=== PATIENT | male | born 1965 | race American Indian/Alaskan Native ===

== ENCOUNTER 2017-10-14 22:49 | Emergency (ER) | payer MEDICAID ==
[2017-10-14 23:37] VITALS: BP 133/76; PULSE 86; RESP 18; TEMP 97.9; O2SAT 99
--- NOTE | 2017-10-14 23:54 | ED PDOC ---
Arrival/HPI - General Historian: Patient - History of Present Illness Time/Duration: Prior to Arrival, 1-3 hours Symptom Onset: Gradual Symptom Course: Unchanged Quality: Aching Severity Level: 5 Activities at Onset: Light Context: Standing <Kathia Segundo - Last Filed: 10/15/17 02:59> <Bernie Ramirez - Last Filed: 10/15/17 06:50> - General Chief Complaint: Lower Extremity Problem/Injury Time Seen by Provider: 10/14/17 23:06 - History of Present Illness Narrative History of Present Illness (Text): 10/14/17 23:54 52 years old male, denies PMH, presents for left foot pain x few hours [employer]. Pt is a poor historian. Pt is homeless, and he states that his left foot has been bothering him, he has dull achy pain in the distal foot, denies radiation of pain, discharge, fever, chills, nausea, vomiting, weakness, loss of sensation. He denies trauma to the area. No PCP Denies surgeries in the past. (Kathia Segundo) Associated Symptoms (Text): 10/14/17 23:56 denies radiation of pain, discharge, fever, chills, nausea, vomiting, weakness , loss of sensation. (Kathia Segundo) Past Medical History - Provider Review Nursing Documentation Reviewed: Yes - Infectious Disease Hx of Infectious Diseases: None - Psychiatric Hx Substance Use: Yes <Kathia Segundo - Last Filed: 10/15/17 02:59> Family/Social History - Physician Review Nursing Documentation Reviewed: Yes Family/Social History: No Known Family HX Smoking Status: Current Some Days Smoker Hx Alcohol Use: Yes Hx Substance Use: Yes <Kathia Segundo - Last Filed: 10/15/17 02:59> Allergies/Home Meds <Kathia Segundo - Last Filed: 10/15/17 02:59> <Bernie Ramirez - Last Filed: 10/15/17 06:50> Allergies/Adverse Reactions: Allergies No Known Allergies Allergy (Verified 10/14/17 23:43) Review of Systems - Review of Systems Constitutional: Other (left foot pain). absent: Fatigue, Fevers Eyes: absent: Vision Changes ENT: absent: Hearing Changes Respiratory: absent: SOB, Cough Cardiovascular: absent: Chest Pain Gastrointestinal: absent: Abdominal Pain Genitourinary Male: absent: Dysuria, Hematuria Skin: absent: Abscess, Ulcer Neurological: absent: Headache, Dizziness Endocrine: absent: Diaphoresis <Kathia Segundo - Last Filed: 10/15/17 02:59> Physical Exam Vital Signs Reviewed: Yes Temperature: Afebrile Blood Pressure: Normal Pulse: Regular Respiratory Rate: Normal Appearance: Positive for: Other (disheveled male) Pain Distress: Mild Mental Status: Positive for: Alert and Oriented X 3 - Systems Exam Head: Present: Atraumatic, Normocephalic Pupils: Present: PERRL Extroacular Muscles: Present: EOMI Mouth: Present: Moist Mucous Membranes Neck: Present: Normal Range of Motion Respiratory/Chest: Present: Clear to Auscultation Cardiovascular: Present: Regular Rate and Rhythm, Normal S1, S2 Abdomen: Present: Normal Bowel Sounds. No: Tenderness Upper Extremity: No: Cyanosis Lower Extremity: Present: NORMAL PULSES, Tenderness (left foot between 4th and 5th metatarsal bones, superficial scrape between toes, no discharge, swelling, erythema.), Capillary Refill < 2 s. No: Edema, CALF TENDERNESS, Swelling, Erythema, Temperature Abnormalties Neurological: Present: GCS=15, Speech Normal Skin: Present: Warm, Dry Psychiatric: Present: Alert, Oriented x 3 <Kathia Segundo - Last Filed: 10/15/17 02:59> Vital Signs Temp Pulse Resp BP Pulse Ox 10/14/17 22:50 97.9 F 86 18 133/76 99 Medical Decision Making <Kathia Segundo - Last Filed: 10/15/17 02:59> <Bernie Ramirez - Last Filed: 10/15/17 06:50> ED Course and Treatment: 10/14/17 23:48 52 years old male presents for left foot pain: - left foot xray - Toradol IM - Bactroban ointment - Reassess 10/15/17 02:59 Pt refused to do foot x ray. Will discharge on Bactroban and follow up with PCP in 2-3 days. Pt instructed to return to ER if symptoms worsen. (Kathia Segundo) Patient Seen With Resident: In agreement with resident note which contains more details about the patient. Patient was seen and evaluated with resident. Came up with plan and treatment together. A 52 year old male with left foot pain. Additional HPI as notes by resident. On physical exam, patient has left foot tenderness between 4th and 5th metatarsal bones, superficial scrape between toes, no swelling, erythema or discharge. Ordered EKG and Xray of left foot. Will give patient Toradol and Bactroban Ointment. (Bernie Ramirez) - Medication Orders Current Medication Orders: Discontinued Medications Ketorolac Tromethamine (Toradol) 30 mg IM STAT STA Stop: 10/14/17 23:59 Mupirocin (Bactroban Ointment) 1 gm TOP STAT STA Stop: 10/14/17 23:47 - PA / [employer]TER [employer]ACER / Resident Statement MD/ has reviewed & agrees with the documentation as recorded. MD/ has examined the patient and agrees with the treatment plan. <Kathia Segundo - Last Filed: 10/15/17 02:59> - Scribe Statement The provider has reviewed the documentation as recorded by the Scribe <Bernie Ramirez - Last Filed: 10/15/17 06:50> - Scribe Statement Javy Lomas Provider Scribe Attestation: All medical record entries made by the Scribe were at my direction and personally dictated by me. I have reviewed the chart and agree that the record accurately reflects my personal performance of the history, physical exam, medical decision making, and the department course for this patient. I have also personally directed, reviewed, and agree with the discharge instructions and disposition. (Bernie Ramirez) Disposition/Present on Arrival - Present on Arrival Any Indicators Present on Arrival: No History of DVT/PE: No History of Uncontrolled Diabetes: No Urinary Catheter: No History of Decub. Ulcer: No History Surgical Site Infection Following: None - Disposition Have Diagnosis and Disposition been Completed?: Yes Disposition Time: 03:01 Patient Plan: Discharge <Kathia Segundo - Last Filed: 10/15/17 02:59> <Bernie Ramirez - Last Filed: 10/15/17 06:50> - Disposition Diagnosis: Foot pain, left Disposition: HOME/ ROUTINE Condition: FAIR Discharge Instructions (ExitCare): Mupirocin (On the skin) Print Language: PERUVIAN Additional Instructions: - Pt has superficial skin infection of left foot, between 4th-5th interdigital space. - Please apply Bactroban to the area. - If symptoms worsen, please return to the ER Prescriptions: Mupirocin 2% Ointment [Bactroban Ointment] 1 appl TP BID #1 tube Referrals: Eliceo Jimenez MD [Primary Care Provider] - Follow up with primary Forms: [employer] (Niuean)
--- NOTE | 2017-10-15 22:22 | CARD ---
APPROVED REPORT EKG Measurement Heart [id number] <Conclusion> Normal sinus rhythm Septal infarct, age undetermined Abnormal ECG
== END 2017-10-15 03:30 | disposition home or self-care (01) ==
LOC: ED 22:49
DX: M79.672 Pain in left foot (principal); F17.200 Nicotine dependence, unspecified, uncomplicated; Z59.0 Homelessness